=== PATIENT | female | born 1955 | race Caucasian/White ===

== ENCOUNTER → 2019-02-11 09:26 | Outpatient (CLI) | payer OTHER, SELFPAY ==
--- NOTE | 2019-02-11 09:31 | US_ITS ---
US abdomen limited HISTORY: Right upper quadrant pain abdominal bloating several months. Nausea indigestion. Heartburn diarrhea ORDERING PHYSICIAN: Shilpi Lin PATIENT AGE: 63 years Comparison: None Procedure Sagittal, transverse and decubitus imaging of the gallbladder was performed. Mw Likely FINDINGS: GALLBLADDER - No stones are evident. There is no gallbladder wall thickening. Common duct is normal in diameter.. Measures up to 5 mm at hilum of liver LIVER:. 1.2X 1.5 cm AP X 1.4 cm solid benign cystic area posterior left lobe, just anterior to the gallbladder fossa.. No significant appearing lesions . No bili ductal dilatation subtle. Suggestion of some very subtle areas of fatty change liver. . Portal vein normal caliber and normal direction flow PANCREAS: Unremarkable. Head, body and medial tail of pancreas are fairly well visualized and appear satisfactory. No pancreatic duct dilatation or mass lesion evident. No fluid collection.. RIGHT KIDNEY: .. Normal size 10 cm in length. No hydronephrosis. Borderline cortical thinning IMPRESSION.... Negative gallbladder ultrasound. No stones evident. . Common duct normal. Liver:. 1.5 cm benign-appearing hepatic cyst left lobe- just anterior to the gallbladder fossa. . Right kidney. Only note Borderline cortical thinning right kidney
== END ==
PROVIDERS: PCP Nurse Practitioner Family; Referring Provider Nurse Practitioner Family; Visit Provider Nurse Practitioner Family
DX: R10.11 Right upper quadrant pain (principal); R14.0 Abdominal distension (gaseous)
CPT/HCPCS: 76705

== ENCOUNTER → 2019-02-19 12:05 | Outpatient (CLI) | payer OTHER, SELFPAY ==
[2019-02-21 10:02] LABS: H. pylori Stool Ag, EIA Negative (Negative)
== END ==
PROVIDERS: Visit Provider Nurse Practitioner Family
DX: R14.0 Abdominal distension (gaseous) (principal); R10.11 Right upper quadrant pain
CPT/HCPCS: 87338

== ENCOUNTER → 2019-06-25 14:59 | Outpatient (POV) | payer OTHER, SELFPAY | PROVIDERS: Visit Provider Dermatology | DX: Z00.00 Encounter for general adult medical examination without abnormal findings (principal) ==

== ENCOUNTER → 2019-07-22 10:15 | Outpatient (POV) | payer OTHER, SELFPAY | PROVIDERS: PCP Internal Medicine Adolescent Medicine; Visit Provider Nurse Practitioner Family | DX: Z00.00 Encounter for general adult medical examination without abnormal findings (principal) ==

== ENCOUNTER → 2019-10-22 15:17 | Outpatient (CLI) | payer OTHER, SELFPAY ==
--- NOTE | 2019-10-22 15:22 | MM_ITS ---
PROCEDURE: MM DIG SCREENING MAMM BI W/CAD CLINICAL INDICATION: SCREENING There is a history of breast cancer patient's maternal grandmother and 3 maternal aunts and 3 maternal cousins. There has been a previous biopsy right breast for benign disease. COMPARISON: MAMMO SCREENING DIGITAL TOMOSYNTHESIS BILATERAL W CAD from 10/13/2016 MAMMO SCREENING DIGITAL TOMOSYNTHESIS BILATERAL W CAD from 10/16/2017 MAMMO DIAGNOSTIC DIGITAL TOMOSYNTHESIS RIGHT W CAD from 12/08/2017 TECHNIQUE: Standard CC and MLO images were obtained. R2 CAD reviewed. FINDINGS: Scattered fibroglandular densities are seen throughout both breasts. There is a biopsy clip upper outer quadrant right breast. There are couple of benign-appearing microcalcifications in each breast. There is no new or suspicious lesion in either breast and no suspicious microcalcifications. IMPRESSION: Moderate breast density with no suspicious lesions seen BI-RAD Category: 2 Benign Finding(s) FOLLOW-UP: 1YR 1 Year Follow-up (A letter has been sent to the patient regarding results of the study.) Dictated by: Dr. Raheem Espinoza MD 10/27/2019 14:[address] Raheem Espinoza MD in [place] 10/27/2019 14:32
== END ==
PROVIDERS: PCP Internal Medicine Adolescent Medicine; Visit Provider Nurse Practitioner Family
DX: Z12.31 Encounter for screening mammogram for malignant neoplasm of breast (principal)
CPT/HCPCS: 77067

== ENCOUNTER → 2020-07-22 11:23 | Outpatient (CLI) | payer MEDICARE, SELFPAY ==
[2020-07-22 11:50] LABS: Basophils # 0.1 K/mm3 (0-0.2); Basophils % 2.1 % (0.1-2.0); Eosinophils # 0.4 K/mm3 (0.0-0.4); Hematocrit 48.1 % (37.0-47.0); Hemoglobin 16.5 g/dL (12.2-16.2); Lymphocytes # 1.1 K/mm3 (0.7-4.5); Lymphocytes % 32.2 % (10-50); Mean Corpuscular HGB Conc 34.3 g/dL (31.8-35.4); Mean Corpuscular Hemoglobin 36.7 pg (27.0-31.2); Mean Corpuscular Volume 107.1 fl (81-99); Mean Platelet Volume 7.9 fl (7.4-10.4); Monocytes # 0.3 K/mm3 (0.1-1.0); Monocytes % 8.3 % (1.7-9.3); Neutrophils # 1.6 K/mm3 (1.8-7.8); Neutrophils % 45.5 % (37.0-80.0); Platelet Count 189 K/mm3 (142-424); Red Blood Count 4.49 M/mm3 (4.20-5.40); Red Cell Distribution Width 13.6 % (11.5-17.5); White Blood Count 3.4 K/mm3 (4.8-10.8)
[2020-07-22 12:53] LABS: Alanine Aminotransferase 121 U/L (12-78); Albumin Level 4.5 g/dl (3.5-5.0); Albumin/Globulin Ratio 1.6 (1.1-1.8); Alkaline Phosphatase 107 U/L (38-126); Anion Gap 13.3 mEq/L (5-15); Aspartate Amino Transferase 145 U/L (14-36); Blood Urea Nitrogen 13 mg/dl (7-17); Calcium 10.3 mg/dl (8.4-10.2); Carbon Dioxide 30 mmol/L (22.0-30.0); Chloride 101 mmol/L (98-107); Estimated Glomerular Filt Rate 72 ml/min (>60); GFR (African American) 87 ML/MIN (>60); Globulin 2.9 g/dL (1.3-3.2); Glucose 91 mg/dl (74-100); Potassium 4.3 mmoL/L (3.5-5.1); Sodium 140 mmol/L (136-145); Total Protein,Serum 7.4 g/dl (6.3-8.2)
== END ==
PROVIDERS: Visit Provider Internal Medicine Gastroenterology
DX: R94.5 Abnormal results of liver function studies (principal)
CPT/HCPCS: 36415; 80053; 85025

== ENCOUNTER → 2020-08-13 09:47 | Outpatient (CLI) | payer MEDICARE, OTHER, SELFPAY ==
--- NOTE | 2020-08-13 09:51 | US_ITS ---
PROCEDURE: US ABDOMEN LIMITED Referring Doctor: Yaneth Garibay Patient Age:65Y CLINICAL INDICATION: ABN LIVER FUNCTION TEST,. COMPARISON: US ABD US abdomen limited from 02/11/2019 FINDINGS: PANCREAS: Unremarkable. No obvious mass or abnormal fluid collection. No ductal dilatation LIVER: 1.8 cm 1.6 x 1.5 cm hypoechoic area at the liver just anterior to the gallbladder is again identified. It was seen on the previous February 2019, ultrasound. This this cyst appears slightly larger but with similar character and clear fluid. Only slight undulating margins in some areas.-Continue to favor a benign hepatic cyst. . No intrahepatic biliary ductal dilatation evident. There is appropriate direction of blood flow within a non dilated portal vein RIGHT KIDNEY: Borderline diffuse cortical thinning at the right kidney. It measures 11.5 cm length x4 0.6 x 5 point 2 cm ble. Normal size and normal cortical echogenicity. No hydronephrosis. GALLBLADDER: No gallstones, gallbladder wall thickening, pericholecystic fluid, or biliary dilatation. The gallbladder moderate size 8 cm length. IMPRESSION: . hepatic cyst again seen residingjust anterior to the gallbladder . This cyst measures incremental larger than on February 2019 ultrasound today measuring up to 18 mm AP maximally on today's study but continues to have clear fluid and favor benign hepatic cystic character.. However suggest follow-up within 1 year. If abnormal liver function tests should persist a progression may want to consider a follow-up CT liver, pre and postcontrast to further evaluate as well Borderline cortical thinning right kidney. Gallbladder unremarkable. Common duct normal. Dictated by: Mike Chapa MD 08/13/2020 15:24 Mike Chapa MD in [place] 08/13/2020 15:24
== END ==
PROVIDERS: PCP Internal Medicine Adolescent Medicine; Visit Provider Nurse Practitioner Family
DX: R94.5 Abnormal results of liver function studies (principal)
CPT/HCPCS: 76705

== ENCOUNTER → 2020-08-17 11:01 | Outpatient (CLI) | payer MEDICARE, SELFPAY ==
[2020-08-17 11:49] LABS: Basophils # 0.1 K/mm3 (0-0.2); Basophils % 4.6 % (0.1-2.0); Eosinophils # 0.4 K/mm3 (0.0-0.4); Eosinophils % 13.5 % (0.1-12.0); Hematocrit 51.9 % (37.0-47.0); Hemoglobin 17.2 g/dL (12.2-16.2); Lymphocytes % 34.5 % (10-50); Mean Corpuscular HGB Conc 33.2 g/dL (31.8-35.4); Mean Corpuscular Hemoglobin 35.7 pg (27.0-31.2); Mean Corpuscular Volume 107.4 fl (81-99); Mean Platelet Volume 7.8 fl (7.4-10.4); Monocytes # 0.2 K/mm3 (0.1-1.0); Neutrophils # 1.4 K/mm3 (1.8-7.8); Platelet Count 218 K/mm3 (142-424); Red Blood Count 4.83 M/mm3 (4.20-5.40); Red Cell Distribution Width 13.1 % (11.5-17.5)
[2020-08-17 12:01] LABS: INR 0.97 (0.9-1.1); Prothrombin Time 10.8 seconds (9.4-11.8)
[2020-08-17 12:16] LABS: Chloride 104 mmol/L (98-107); Potassium 3.8 mmoL/L (3.5-5.1); Sodium 144 mmol/L (136-145)
[2020-08-17 12:18] LABS: Alanine Aminotransferase 126 U/L (12-78); Aspartate Amino Transferase 163 U/L (14-36); Blood Urea Nitrogen 11 mg/dl (7-17); Estimated Glomerular Filt Rate 63 ml/min (>60); GFR (African American) 76 ML/MIN (>60)
[2020-08-17 12:19] LABS: Albumin Level 4.6 g/dl (3.5-5.0); Albumin/Globulin Ratio 1.6 (1.1-1.8); Alkaline Phosphatase 87 U/L (38-126); Anion Gap 12.8 mEq/L (5-15); Bilirubin,Total 0.7 mg/dl (0.2-1.3); Calcium 10.8 mg/dl (8.4-10.2); Carbon Dioxide 31 mmol/L (22.0-30.0); Globulin 2.8 g/dL (1.3-3.2); Glucose 95 mg/dl (74-100); Iron 185 ug/dL (37-170); Total Protein,Serum 7.4 g/dl (6.3-8.2)
[2020-08-17 12:29] LABS: Total Iron Binding Capacity 338 ug/dL (265-497)
[2020-08-17 12:54] LABS: Ferritin 205 ng/ml (11.1-264)
[2020-08-18 16:30] LABS: Ceruloplasmin 28.1 mg/dL (19.0-39.0); Immunoglobulin A, Qn 133 mg/dL (87-352); Immunoglobulin G, Qn 1053 mg/dL (586-1602)
[2020-08-19 13:18] LABS: Angiotensin Converting Enzyme 61 U/L (14-82); Deamidated Gliadin Abs, IgA 2 units (0-19); Deamidated Gliadin Abs, IgG 4 units (0-19); Immunoglobulin M, Qn 128 mg/dL (26-217); Liver-Kidney Microsomal Ab <1.0 Units (0.0-20.0); Tissue Transglutaminase IgA Ab <2 U/mL (0-3); Tissue Transglutaminase IgG Ab 2 U/mL (0-5)
[2020-08-19 13:19] LABS: Actin (Smooth Muscle) Antibody 7 Units (0-19); Endomysial IgA Antibody Negative (Negative); Mitochondrial (M2) Antibody <20.0 Units (0.0-20.0); Reticulin IgA Antibody Negative titer (Neg:<1:2.5)
[2020-08-20 07:33] LABS: ALT (SGPT) P5P 129 IU/L (0-40); AST (SGOT) P5P 157 IU/L (0-40); Alpha 2-Macroglobulins, Qn 193 mg/dL (110-276); Apolipoprotein A-1 293 mg/dL (116-209); Bilirubin, Total 0.5 mg/dL (0.0-1.2); Cholesterol, Total 293 mg/dL (100-199); GGT 347 IU/L (0-60); Glucose 89 mg/dL (65-99); Haptoglobin 149 mg/dL (37-355); Triglycerides 165 mg/dL (0-149)
[2020-08-21 21:55] LABS: Alpha-1-Antitrypsin 143 mg/dL (101-187)
[2020-08-30 16:53] LABS: Antinuclear Antibodies (ANA) NEGATIVE
== END ==
PROVIDERS: Visit Provider Nurse Practitioner Family
DX: R94.5 Abnormal results of liver function studies (principal); K76.0 Fatty (change of) liver, not elsewhere classified
CPT/HCPCS: 36415; 80053; 81256; 82103; 82104; 82164; 82390; 82728; 82784; 83516; 83540; 83550; 85025; 85610; 86038; 86255; 86256; 86376

== ENCOUNTER → 2021-02-23 15:08 | Outpatient (CLI) | payer MEDICARE, SELFPAY ==
--- NOTE | 2021-02-23 15:10 | MM_ITS ---
PROCEDURE: MM DIG SCREENING MAMM BI W/CAD Digital Breast Tomosynthesis Included CLINICAL INDICATION: SCREENING There is a history of breast cancer patient's maternal grandmother, maternal aunt and maternal cousin. There has been a previous biopsy right breast for benign disease. COMPARISON: MG MAMMO SCREENING DIGITAL TOMOSYNTHESIS BILATERAL W CAD from 10/16/2017 MG MAMMO DIAGNOSTIC DIGITAL TOMOSYNTHESIS RIGHT W CAD from 12/08/2017 MG MM DIG SCREENING MAMM BI W/CAD from 10/22/2019 TECHNIQUE: Standard CC and MLO images and 3D Tomosynthesis was obtained. R2 CAD reviewed. FINDINGS: Moderate scattered fibroglandular densities are seen throughout both breasts. There is a biopsy clip upper outer quadrant right breast. There is a stable small benign-appearing nodular density upper-outer quadrant right breast and a similar small benign-appearing nodular density central portion left breast. There is a stable collection of microcalcifications subareolar region left breast. There is no new or suspicious lesion in either breast and no suspicious microcalcifications. IMPRESSION: Moderate breast density with no suspicious lesions seen BI-RAD Category: 2 Benign Finding(s) FOLLOW-UP: 1YR 1 Year Follow-up (A letter has been sent to the patient regarding results of the study.) Dictated by: Dr. Raheem Espinoza MD 02/26/2021 11:12 Dr. Raheem Espinoza MD in [place] 02/26/2021 11:12
== END ==
PROVIDERS: PCP Internal Medicine Adolescent Medicine; Visit Provider Internal Medicine Adolescent Medicine
DX: Z12.31 Encounter for screening mammogram for malignant neoplasm of breast (principal)
CPT/HCPCS: 77063; 77067

== ENCOUNTER → 2021-06-29 14:54 | Outpatient (POV) | payer MEDICARE, SELFPAY | PROVIDERS: Visit Provider Dermatology | DX: Z00.00 Encounter for general adult medical examination without abnormal findings (principal) ==

== ENCOUNTER → 2021-10-01 11:48 | Outpatient (CLI) | payer MEDICARE, SELFPAY ==
[2021-10-01 12:36] LABS: Basophils # 0.1 K/mm3 (0-0.2); Basophils % 3.2 % (0.1-2.0); Eosinophils # 0.5 K/mm3 (0.0-0.4); Eosinophils % 16.2 % (0.1-12.0); Hematocrit 49.4 % (37.0-47.0); Hemoglobin 16.8 g/dL (12.2-16.2); Lymphocytes # 1.2 K/mm3 (0.7-4.5); Lymphocytes % 41.7 % (10-50); Mean Corpuscular Hemoglobin 37.1 pg (27.0-31.2); Mean Platelet Volume 9.2 fl (7.4-10.4); Monocytes # 0.2 K/mm3 (0.1-1.0); Monocytes % 5.5 % (1.7-9.3); Neutrophils % 33.3 % (37.0-80.0); Platelet Count 243 K/mm3 (142-424); Red Blood Count 4.54 M/mm3 (4.20-5.40); Red Cell Distribution Width 13.9 % (11.5-17.5)
[2021-10-01 13:14] LABS: Chloride 108 mmol/L (98-107); Sodium 143 mmol/L (136-145)
[2021-10-01 13:16] LABS: Alanine Aminotransferase 199 U/L (12-78); Aspartate Amino Transferase 340 U/L (14-36); Blood Urea Nitrogen 10 mg/dl (7-17); Estimated Glomerular Filt Rate 72 ml/min (>60); GFR (African American) 87 ML/MIN (>60)
[2021-10-01 13:17] LABS: Albumin Level 4.2 g/dl (3.5-5.0); Albumin/Globulin Ratio 1.6 (1.1-1.8); Alkaline Phosphatase 87 U/L (38-126); Bilirubin,Total 0.6 mg/dl (0.2-1.3); Calcium 9.7 mg/dl (8.4-10.2); Carbon Dioxide 28 mmol/L (22.0-30.0); Chol/HDL Ratio 3.1 (1-3.5); Cholesterol 234 mg/dl (140-200); Globulin 2.6 g/dL (1.3-3.2); Glucose 88 mg/dl (74-100); HDL Cholesterol 75 mg/dl (40-60); Total Protein,Serum 6.8 g/dl (6.3-8.2); Triglycerides 169 mg/dl (30-150); VLDL Cholesterol 34 mg/dL (0-40)
[2021-10-01 13:29] LABS: Direct LDL Cholesterol 147.46 mg/dL (100-129)
[2021-10-01 13:50] LABS: Thyroid Stimulating Hormone 0.56 uIU/mL (0.465-4.68)
[2021-10-01 14:20] LABS: Vitamin B12 764 pg/mL (239-931)
== END ==
PROVIDERS: Visit Provider Nurse Practitioner Family
DX: E03.9 Hypothyroidism, unspecified (principal); E78.2 Mixed hyperlipidemia; D72.819 Decreased white blood cell count, unspecified; M85.89 Other specified disorders of bone density and structure, multiple sites
CPT/HCPCS: 36415; 80053; 80061; 82306; 82607; 84443; 85025

== ENCOUNTER → 2021-10-13 09:09 | Outpatient (CLI) | payer MEDICARE, SELFPAY ==
--- NOTE | 2021-10-13 09:26 | XR_ITS ---
PROCEDURE: XR DEXA AXIAL SKELETON CLINICAL HISTORY: POST MENOPAUSAL COMPARISON: CR BONE3 BONE DENSITOMETRY(HIP:LT SPINE from 03/24/2017 FINDINGS: The right hip BMD is 0.568 with a T-score of -2.5. The left hip BMD is 0.571 with a T-score of -2.5. The lumbar spine BMD is 0.693 with a T-score of -3.2. Previously the lowest density was in the spine with a T-score -2.6 IMPRESSION: This patient is considered osteoporotic according to the World Health Organization criteria. Fracture risk is high. Treatment is advised. Based on these results a follow-up exam is recommended in 1 year. Dictated by: Tucker Smith MD 10/13/2021 16:52 Tucker Smith MD in [place] 10/13/2021 16:52
== END ==
PROVIDERS: PCP Internal Medicine Adolescent Medicine; Visit Provider Nurse Practitioner Family
DX: Z78.0 Asymptomatic menopausal state (principal); M85.80 Other specified disorders of bone density and structure, unspecified site
CPT/HCPCS: 77080

== ENCOUNTER → 2021-10-20 10:54 | Outpatient (CLI) | payer MEDICARE, OTHER, SELFPAY ==
--- NOTE | 2021-10-20 10:57 | US_ITS ---
PROCEDURE: US ABDOMEN LIMITED CLINICAL INDICATION: RUQ ABD PAIN, ABD BLOATING COMPARISON: US US ABDOMEN LIMITED from 08/13/2020 FINDINGS: PANCREAS: Unremarkable. No obvious mass or abnormal fluid collection. No ductal dilatation LIVER: 16 mm cyst is present in the left hepatic lobe not significantly changed.. There is appropriate direction of blood flow within a non dilated portal vein. RIGHT KIDNEY: Unremarkable. Normal size and echogenicity. No hydronephrosis GALLBLADDER: No gallstones, gallbladder wall thickening, or pericholecystic fluid. The common bile duct is upper normal at 6 mm. Not significantly changed IMPRESSION: Unremarkable gallbladder ultrasound. Small hepatic cyst unchanged Dictated by: Tucker Smith MD 10/20/2021 17:23 Tucker Smith MD in [place] 10/20/2021 17:23
== END ==
PROVIDERS: PCP Internal Medicine Adolescent Medicine; Visit Provider Nurse Practitioner Family
DX: R10.11 Right upper quadrant pain (principal); R14.0 Abdominal distension (gaseous)
CPT/HCPCS: 76705

== ENCOUNTER → 2021-11-29 12:33 | Outpatient (CLI) | payer MEDICARE, SELFPAY ==
[2021-11-29 13:12] LABS: Basophils # 0.2 K/mm3 (0-0.2); Basophils % 5.9 % (0.1-2.0); Eosinophils # 0.3 K/mm3 (0.0-0.4); Hematocrit 58.1 % (37.0-47.0); Lymphocytes # 1.1 K/mm3 (0.7-4.5); Lymphocytes % 37.6 % (10-50); Mean Corpuscular Hemoglobin 36.4 pg (27.0-31.2); Mean Corpuscular Volume 117.5 fl (81-99); Mean Platelet Volume 8.5 fl (7.4-10.4); Monocytes # 0.2 K/mm3 (0.1-1.0); Monocytes % 5.4 % (1.7-9.3); Neutrophils # 1.4 K/mm3 (1.8-7.8); Platelet Count 235 K/mm3 (142-424); Red Blood Count 4.95 M/mm3 (4.20-5.40); Red Cell Distribution Width 13.1 % (11.5-17.5)
[2021-11-29 14:52] LABS: Chloride 105 mmol/L (98-107); Potassium 4.4 mmoL/L (3.5-5.1); Sodium 143 mmol/L (136-145)
[2021-11-29 14:55] LABS: Alanine Aminotransferase 151 U/L (12-78); Albumin Level 4.5 g/dl (3.5-5.0); Albumin/Globulin Ratio 1.6 (1.1-1.8); Alkaline Phosphatase 107 U/L (38-126); Anion Gap 14.4 mEq/L (5-15); Aspartate Amino Transferase 238 U/L (14-36); Bilirubin,Total 0.7 mg/dl (0.2-1.3); Blood Urea Nitrogen 9 mg/dl (7-17); Carbon Dioxide 28 mmol/L (22.0-30.0); Estimated Glomerular Filt Rate 72 ml/min (>60); GFR (African American) 87 ML/MIN (>60); Globulin 2.9 g/dL (1.3-3.2); Total Protein,Serum 7.4 g/dl (6.3-8.2)
[2021-11-29 14:56] LABS: Calcium 10.1 mg/dl (8.4-10.2); Glucose 85 mg/dl (74-100)
[2021-12-01 11:38] LABS: AFP, Tumor Marker 6.1 ng/mL (0.0-8.3)
[2021-12-02 00:07] LABS: ALT (SGPT) P5P 148 IU/L (0-40); AST (SGOT) P5P 210 IU/L (0-40); Alpha 2-Macroglobulins, Qn 217 mg/dL (110-276); Apolipoprotein A-1 190 mg/dL (116-209); Bilirubin, Total 0.5 mg/dL (0.0-1.2); Cholesterol, Total 245 mg/dL (100-199); Fibrosis Score 0.36 (0.00-0.21); Fibrosis Stage F1-F2 (.); GGT 224 IU/L (0-60); Glucose 80 mg/dL (65-99); Haptoglobin 130 mg/dL (37-355); NASH Score 0.75 (0.25); Steatosis Score 0.76 (0.00-0.30); Triglycerides 182 mg/dL (0-149)
== END ==
PROVIDERS: PCP Nurse Practitioner Family; Visit Provider Nurse Practitioner Family
DX: R94.5 Abnormal results of liver function studies (principal); K76.9 Liver disease, unspecified; F10.20 Alcohol dependence, uncomplicated; R93.89 Abnormal findings on diagnostic imaging of other specified body structures
CPT/HCPCS: 36415; 80053; 82105; 85025

== ENCOUNTER → 2022-03-04 15:23 | Outpatient (CLI) | payer MEDICARE, SELFPAY ==
--- NOTE | 2022-03-04 15:27 | MM_ITS ---
PROCEDURE INFORMATION: Exam: MG Bilateral Screening 3D Mammography Exam date and time: 03/04/2022 3:33 PM Age: 66 years old Clinical indication: Screening examination. History of maternal grandmother, maternal aunts and maternal cousins with breast cancer. TECHNIQUE: Imaging protocol: Bilateral Screening tomosynthesis and 2D mammography including computer-aided detection (CAD) when performed. COMPARISON: 1. MG MM DIG SCREENING MAMM BI W/CAD 02/23/2021 3:10 PM 2. MG MM DIG SCREENING MAMM BI W/CAD 10/22/2019 3:48 PM 3. MG MAMMO DIAGNOSTIC DIGITAL TOMOSYNTHESIS RIGHT W CAD 12/08/2017 1:31 PM 4. MG MAMMO SCREENING DIGITAL TOMOSYNTHESIS BILATERAL W CAD 10/16/2017 12:54 PM FINDINGS: MAMMOGRAPHY: Breast composition: There are scattered areas of fibroglandular density. Mass: No suspicious mass. Architectural distortion: None. Calcifications: No suspicious calcifications. Asymmetric density: None. Skin thickening: None. Axillary adenopathy: None. IMPRESSION: No mammographic evidence of malignancy. Annual screening is recommended unless otherwise clinically indicated. ASSESSMENT: BI-RADS Category 1: Negative
== END ==
PROVIDERS: PCP Nurse Practitioner Family; Visit Provider Nurse Practitioner Family
DX: Z12.31 Encounter for screening mammogram for malignant neoplasm of breast (principal)
CPT/HCPCS: 77063; 77067

== ENCOUNTER → 2022-03-30 16:25 | Outpatient (CLI) | payer MEDICARE, OTHER, SELFPAY ==
--- NOTE | 2022-03-30 16:31 | XR_ITS ---
PROCEDURE INFORMATION: Exam: XR Right Foot Complete; Alignment Exam date and time: 03/30/2022 4:33 PM Age: 66 years old Clinical indication: Pain; Foot; Right; Additional info: Stress fracture evaluation TECHNIQUE: Imaging protocol: XR Right foot. Views: 3 or more views. COMPARISON: No relevant prior studies available. FINDINGS: Bones/joints: Overlying bandage obscures visualization of the osseous structures. There is no evidence of acutely displaced fractures. There is no evidence of joint dislocation. No aggressive osseous lesions. Soft tissues: Mild soft tissue swelling. IMPRESSION: No acute fractures, within the limits of this study.
== END ==
PROVIDERS: PCP Podiatrist; Visit Provider Podiatrist
DX: M79.671 Pain in right foot (principal)
CPT/HCPCS: 73630

== ENCOUNTER → 2022-04-21 11:36 | Outpatient (CLI) | payer MEDICARE, SELFPAY ==
[2022-04-21 12:18] LABS: Basophils # 0.2 K/mm3 (0-0.2); Eosinophils # 0.3 K/mm3 (0.0-0.4); Eosinophils % 10.5 % (0.1-12.0); Hematocrit 51.5 % (37.0-47.0); Hemoglobin 17.5 g/dL (12.2-16.2); Lymphocytes # 1.3 K/mm3 (0.7-4.5); Lymphocytes % 43.3 % (10-50); Mean Corpuscular Hemoglobin 35.7 pg (27.0-31.2); Mean Corpuscular Volume 105.2 fl (81-99); Mean Platelet Volume 8.8 fl (7.4-10.4); Monocytes # 0.2 K/mm3 (0.1-1.0); Monocytes % 7.7 % (1.7-9.3); Neutrophils # 1.1 K/mm3 (1.8-7.8); Neutrophils % 38.4 % (37.0-80.0); Platelet Count 211 K/mm3 (142-424); Red Blood Count 4.89 M/mm3 (4.20-5.40); Red Cell Distribution Width 13.2 % (11.5-17.5); White Blood Count 2.9 K/mm3 (4.8-10.8)
[2022-04-21 12:47] LABS: Chloride 108 mmol/L (98-107)
[2022-04-21 12:48] LABS: Potassium 3.8 mmoL/L (3.5-5.1); Sodium 143 mmol/L (136-145)
[2022-04-21 12:50] LABS: Alanine Aminotransferase 69 U/L (12-78); Alkaline Phosphatase 95 U/L (38-126); Aspartate Amino Transferase 88 U/L (14-36); Bilirubin,Total 0.6 mg/dl (0.2-1.3); Blood Urea Nitrogen 9 mg/dl (7-17); Estimated Glomerular Filt Rate 63 ml/min (>60); GFR (African American) 76 ML/MIN (>60)
[2022-04-21 12:51] LABS: Albumin Level 4.4 g/dl (3.5-5.0); Albumin/Globulin Ratio 1.6 (1.1-1.8); Anion Gap 11.8 mEq/L (5-15); Calcium 10.5 mg/dl (8.4-10.2); Carbon Dioxide 27 mmol/L (22.0-30.0); Globulin 2.8 g/dL (1.3-3.2); Glucose 100 mg/dl (74-100); Total Protein,Serum 7.2 g/dl (6.3-8.2)
== END ==
PROVIDERS: Nurse Practitioner Family; PCP Nurse Practitioner Family; Visit Provider Internal Medicine Gastroenterology
DX: F10.20 Alcohol dependence, uncomplicated (principal); R94.5 Abnormal results of liver function studies; K76.0 Fatty (change of) liver, not elsewhere classified
CPT/HCPCS: 36415; 80053; 85025

== ENCOUNTER → 2022-11-07 11:27 | Outpatient (CLI) | payer MEDICARE, OTHER, SELFPAY ==
[2022-11-07 12:17] LABS: Basophils # 0.1 K/mm3 (0-0.2); Basophils % 2.2 % (0.1-2.0); Eosinophils # 0.4 K/mm3 (0.0-0.4); Eosinophils % 11.9 % (0.1-12.0); Hematocrit 47.8 % (37.0-47.0); Lymphocytes # 1.2 K/mm3 (0.7-4.5); Lymphocytes % 35.7 % (10-50); Mean Corpuscular HGB Conc 33.5 g/dL (31.8-35.4); Mean Corpuscular Volume 104.4 fl (81-99); Mean Platelet Volume 8.4 fl (7.4-10.4); Monocytes # 0.2 K/mm3 (0.1-1.0); Monocytes % 6.4 % (1.7-9.3); Neutrophils # 1.4 K/mm3 (1.8-7.8); Neutrophils % 43.8 % (37.0-80.0); Platelet Count 200 K/mm3 (142-424); Red Blood Count 4.58 M/mm3 (4.20-5.40); Red Cell Distribution Width 12.7 % (11.5-17.5); White Blood Count 3.3 K/mm3 (4.8-10.8)
[2022-11-07 13:50] LABS: Chloride 107 mmol/L (98-107); Sodium 143 mmol/L (136-145)
[2022-11-07 13:51] LABS: Potassium 4.5 mmoL/L (3.5-5.1)
[2022-11-07 13:53] LABS: Alanine Aminotransferase 51 U/L (12-78); Albumin Level 4.3 g/dl (3.5-5.0); Albumin/Globulin Ratio 1.5 (1.1-1.8); Alkaline Phosphatase 72 U/L (38-126); Anion Gap 14.5 mEq/L (5-15); Aspartate Amino Transferase 70 U/L (14-36); Bilirubin,Total 0.9 mg/dl (0.2-1.3); Blood Urea Nitrogen 13 mg/dl (7-17); Calcium 10.5 mg/dl (8.4-10.2); Carbon Dioxide 26 mmol/L (22.0-30.0); Estimated Glomerular Filt Rate 72 ml/min (>60); GFR (African American) 87 ML/MIN (>60); Globulin 2.8 g/dL (1.3-3.2); Glucose 79 mg/dl (74-100); Total Protein,Serum 7.1 g/dl (6.3-8.2)
== END ==
PROVIDERS: PCP Nurse Practitioner Family; Visit Provider Nurse Practitioner Family
DX: K70.0 Alcoholic fatty liver (principal); K70.9 Alcoholic liver disease, unspecified; R94.5 Abnormal results of liver function studies; K58.9 Irritable bowel syndrome, unspecified; E74.31 Sucrase-isomaltase deficiency
CPT/HCPCS: 36415; 80053; 85025

== ENCOUNTER → 2023-02-20 16:52 | Outpatient (CLI) | payer MEDICARE, OTHER, SELFPAY ==
--- NOTE | 2023-02-20 17:00 | US_ITS ---
FINAL REPORT CLINICAL HISTORY: HYPOTHYROIDISM FINDINGS: Limited sonographic images of the thyroid were obtained. Calcifications are seen in the thyroid bilaterally, left greater than right. The right lobe of the thyroid measures up to 4.3 cm in length. There is a cystic nodule in the right lobe of the thyroid measuring 3 x 2 x 2 mm consistent with TI-RADS category 1. There is a 2nd cystic nodule measuring 3 x 3 x 2 mm consistent with TI-RADS category 1. There is a 3rd cystic nodule measuring 4 x 3 x 2 mm consistent with TI-RADS category 1. The left lobe of the thyroid measures up to 3.0 cm in length. No nodule is identified on the left. The isthmus measures 0.25 cm. IMPRESSION: No dominant mass. No follow-up is recommend. Reviewed, Interpreted and Dictated by Robert Escobedo III, MD Transcribed by Tracy Oneil Authenticated and [facility]
== END ==
PROVIDERS: PCP Nurse Practitioner Family; Visit Provider Nurse Practitioner Family
DX: E03.9 Hypothyroidism, unspecified (principal)
CPT/HCPCS: 76536

== ENCOUNTER → 2023-03-15 15:45 | Outpatient (CLI) | payer MEDICARE, OTHER, SELFPAY ==
--- NOTE | 2023-03-15 15:50 | MM_ITS ---
PROCEDURE INFORMATION: Exam: MG Bilateral Screening 3D Mammography Exam date and time: 03/15/2023 3:46 PM Age: 67 years old Clinical indication: Screening examination TECHNIQUE: Imaging protocol: Bilateral Screening tomosynthesis and 2D mammography including computer-aided detection (CAD) when performed. COMPARISON: 1. MG MM DIG SCREENING MAMM BI W/CAD 03/04/2022 3:33 PM 2. MG MM DIG SCREENING MAMM BI W/CAD 02/23/2021 3:10 PM FINDINGS: MAMMOGRAPHY: Breast composition: There are scattered areas of fibroglandular density. Mass: None. Architectural distortion: None. Calcifications: No suspicious calcifications. Asymmetric density: None. Skin thickening: None. Axillary adenopathy: None. IMPRESSION: No mammographic evidence of malignancy. Annual screening is recommended unless otherwise clinically indicated. ASSESSMENT: BI-RADS Category 1: Negative
== END ==
PROVIDERS: PCP Nurse Practitioner Family; Visit Provider Nurse Practitioner Family
DX: Z12.31 Encounter for screening mammogram for malignant neoplasm of breast (principal)
CPT/HCPCS: 77063; 77067

== ENCOUNTER → 2023-05-12 15:04 | Outpatient (CLI) | payer MEDICARE, OTHER, SELFPAY ==
[2023-05-12 15:19] LABS: Basophils # 0.1 K/mm3 (0-0.2); Basophils % 1.5 % (0.1-2.0); Eosinophils # 0.3 K/mm3 (0.0-0.4); Eosinophils % 7.6 % (0.1-12.0); Hematocrit 49.6 % (37.0-47.0); Hemoglobin 16.1 g/dL (12.2-16.2); Lymphocytes # 1.4 K/mm3 (0.7-4.5); Lymphocytes % 33.6 % (10-50); Mean Corpuscular HGB Conc 32.4 g/dL (31.8-35.4); Mean Corpuscular Hemoglobin 33.4 pg (27.0-31.2); Mean Corpuscular Volume 103.1 fl (81-99); Mean Platelet Volume 8.4 fl (7.4-10.4); Monocytes # 0.4 K/mm3 (0.1-1.0); Monocytes % 8.9 % (1.7-9.3); Neutrophils % 48.4 % (37.0-80.0); Platelet Count 186 K/mm3 (142-424); Red Blood Count 4.82 M/mm3 (4.20-5.40); Red Cell Distribution Width 12.9 % (11.5-17.5); White Blood Count 4.1 K/mm3 (4.8-10.8)
[2023-05-12 16:27] LABS: Alanine Aminotransferase 65 U/L (12-78); Albumin Level 4.5 g/dl (3.5-5.0); Albumin/Globulin Ratio 1.6 (1.1-1.8); Alkaline Phosphatase 95 U/L (38-126); Anion Gap 15.1 mEq/L (5-15); Aspartate Amino Transferase 73 U/L (14-36); Bilirubin,Total 0.8 mg/dl (0.2-1.3); Blood Urea Nitrogen 12 mg/dl (7-17); Calcium 10.1 mg/dl (8.4-10.2); Carbon Dioxide 28 mmol/L (22.0-30.0); Chloride 100 mmol/L (98-107); Estimated Glomerular Filt Rate 72 ml/min (>60); GFR (African American) 87 ML/MIN (>60); Globulin 2.8 g/dL (1.3-3.2); Glucose 83 mg/dl (74-100); Potassium 4.1 mmoL/L (3.5-5.1); Sodium 139 mmol/L (136-145); Total Protein,Serum 7.3 g/dl (6.3-8.2)
== END ==
PROVIDERS: PCP Nurse Practitioner Family; Visit Provider Nurse Practitioner Family
DX: R94.5 Abnormal results of liver function studies (principal); K70.0 Alcoholic fatty liver; E74.31 Sucrase-isomaltase deficiency; R14.0 Abdominal distension (gaseous); B80 Enterobiasis
CPT/HCPCS: 36415; 80053; 85025

== ENCOUNTER → 2023-07-10 13:24 | Outpatient (CLI) | payer MEDICARE, OTHER, SELFPAY | PROVIDERS: PCP Nurse Practitioner Family; Visit Provider Nurse Practitioner Family | DX: L29.0 Pruritus ani (principal) | CPT/HCPCS: 87177 ==

== ENCOUNTER 2023-10-10 08:26 | Day surgery (SDC) | payer MEDICARE, OTHER, SELFPAY ==
[2023-10-06 12:31] VITALS: BMI 24.6
[2023-10-10 08:54] VITALS: BP 140/83; PULSE 66; RESP 18; TEMP 36.2; O2SAT 98
[2023-10-10 10:04] VITALS: BP 149/86; PULSE 72; RESP 19; O2SAT 98
[2023-10-10 10:14] VITALS: BP 143/89; PULSE 73; RESP 19; O2SAT 99
[2023-10-10 10:19] VITALS: BP 144/91; PULSE 72; RESP 19; O2SAT 99
[2023-10-10 10:22] VITALS: BP 133/82; PULSE 72; RESP 16; TEMP 36.6; O2SAT 97
[2023-10-10 10:30] VITALS: BP 133/82; PULSE 72; RESP 16; TEMP 36.6; O2SAT 97
== END 2023-10-10 10:32 | disposition home or self-care (01) ==
PROVIDERS: PCP Nurse Practitioner Family; Visit Provider Ophthalmology
PROC: (CPT 66984; principal; 2023-10-10 10:30)
DX: H25.812 Combined forms of age-related cataract, left eye (principal)
CPT/HCPCS: 66984; V2632

== ENCOUNTER 2023-10-24 08:48 | Day surgery (SDC) | payer MEDICARE, OTHER, SELFPAY ==
[2023-10-20 12:36] VITALS: BMI 25.0
[2023-10-24 10:08] VITALS: BP 132/90; PULSE 79; RESP 18; TEMP 36.6; O2SAT 98
[2023-10-24 11:00] VITALS: BP 135/80; BP 148/82; PULSE 74; PULSE 76; RESP 16; O2SAT 99
[2023-10-24 11:06] VITALS: BP 137/79; PULSE 70; RESP 16; O2SAT 99
[2023-10-24 11:08] VITALS: BP 141/76; PULSE 71; RESP 16; O2SAT 99
[2023-10-24 11:10] VITALS: BP 126/90; PULSE 71; RESP 17; TEMP 36.3; O2SAT 99
[2023-10-24 11:18] VITALS: BP 126/90; PULSE 71; RESP 17; O2SAT 99
== END 2023-10-24 11:20 | disposition home or self-care (01) ==
PROVIDERS: PCP Nurse Practitioner Family; Visit Provider Ophthalmology
PROC: (CPT 66984; principal; 2023-10-24 11:00)
DX: H25.811 Combined forms of age-related cataract, right eye (principal)
CPT/HCPCS: 66984; V2632

== ENCOUNTER 2023-12-07 10:58 | Outpatient (CLI) | payer MEDICARE, OTHER, SELFPAY ==
[2023-12-07 11:56] LABS: Chloride 108 mmol/L (98-107); Sodium 143 mmol/L (136-145)
[2023-12-07 11:58] LABS: Blood Urea Nitrogen 12 mg/dl (7-17); Estimated Glomerular Filt Rate 62 ml/min (>60); GFR (African American) 75 ML/MIN (>60)
[2023-12-07 11:59] LABS: Alanine Aminotransferase 54 U/L (12-78); Albumin Level 4.2 g/dl (3.5-5.0); Albumin/Globulin Ratio 1.6 (1.1-1.8); Alkaline Phosphatase 100 U/L (38-126); Aspartate Amino Transferase 67 U/L (14-36); Bilirubin,Total 0.7 mg/dl (0.2-1.3); Calcium 9.7 mg/dl (8.4-10.2); Carbon Dioxide 28 mmol/L (22.0-30.0); Chol/HDL Ratio 3.3 (1-3.5); Cholesterol 240 mg/dl (140-200); Globulin 2.7 g/dL (1.3-3.2); Glucose 90 mg/dl (74-100); HDL Cholesterol 72 mg/dl (40-60); Total Protein,Serum 6.9 g/dl (6.3-8.2); Triglycerides 207 mg/dl (30-150); VLDL Cholesterol 41 mg/dL (0-40)
[2023-12-07 12:05] LABS: Basophils # 0.1 K/mm3 (0-0.2); Basophils % 2.4 % (0.1-2.0); Eosinophils # 0.3 K/mm3 (0.0-0.4); Eosinophils % 9.8 % (0.1-12.0); Hematocrit 49.4 % (37.0-47.0); Hemoglobin 16.9 g/dL (12.2-16.2); Lymphocytes # 1.1 K/mm3 (0.7-4.5); Lymphocytes % 36.7 % (10-50); Mean Corpuscular HGB Conc 34.2 g/dL (31.8-35.4); Mean Corpuscular Hemoglobin 36.5 pg (27.0-31.2); Mean Corpuscular Volume 106.7 fl (81-99); Mean Platelet Volume 8.2 fl (7.4-10.4); Monocytes # 0.3 K/mm3 (0.1-1.0); Monocytes % 8.3 % (1.7-9.3); Neutrophils # 1.3 K/mm3 (1.8-7.8); Neutrophils % 42.9 % (37.0-80.0); Platelet Count 164 K/mm3 (142-424); Red Blood Count 4.63 M/mm3 (4.20-5.40); Red Cell Distribution Width 12.9 % (11.5-17.5)
[2023-12-07 12:22] LABS: 25-OH Vitamin D, Total 76.7 ng/mL (30-100)
[2023-12-07 12:30] LABS: Thyroid Stimulating Hormone 0.27 uIU/mL (0.465-4.68)
[2023-12-07 12:31] LABS: Direct LDL Cholesterol 131.78 mg/dL (100-129)
== END 2023-12-07 23:59 ==
LOC: LAB 10:59
PROVIDERS: PCP Nurse Practitioner Family; Visit Provider Nurse Practitioner Family
DX: E03.9 Hypothyroidism, unspecified; E78.2 Mixed hyperlipidemia; M81.0 Age-related osteoporosis without current pathological fracture
CPT/HCPCS: 36415; 80053; 80061; 82306; 84443; 85025

== ENCOUNTER 2023-12-19 14:44 | Outpatient (CLI) | payer MEDICARE, OTHER, SELFPAY ==
[2023-12-19 15:05] LABS: Basophils # 0.1 K/mm3 (0-0.2); Basophils % 2.3 % (0.1-2.0); Eosinophils # 0.5 K/mm3 (0.0-0.4); Eosinophils % 12.7 % (0.1-12.0); Hematocrit 47.7 % (37.0-47.0); Hemoglobin 16.4 g/dL (12.2-16.2); Lymphocytes # 1.2 K/mm3 (0.7-4.5); Lymphocytes % 30.3 % (10-50); Mean Corpuscular HGB Conc 34.4 g/dL (31.8-35.4); Mean Corpuscular Hemoglobin 35.8 pg (27.0-31.2); Mean Platelet Volume 8.7 fl (7.4-10.4); Monocytes # 0.3 K/mm3 (0.1-1.0); Monocytes % 8.2 % (1.7-9.3); Neutrophils # 1.9 K/mm3 (1.8-7.8); Neutrophils % 46.5 % (37.0-80.0); Platelet Count 171 K/mm3 (142-424); Red Blood Count 4.58 M/mm3 (4.20-5.40); Red Cell Distribution Width 12.8 % (11.5-17.5); Reticulocyte % (Auto) 1.6 % (0.9-3.2); White Blood Count 4.1 K/mm3 (4.8-10.8)
[2023-12-19 16:13] LABS: Alanine Aminotransferase 48 U/L (12-78); Albumin Level 4.3 g/dl (3.5-5.0); Albumin/Globulin Ratio 1.5 (1.1-1.8); Alkaline Phosphatase 86 U/L (38-126); Anion Gap 11.8 mEq/L (5-15); Aspartate Amino Transferase 60 U/L (14-36); Bilirubin,Total 0.6 mg/dl (0.2-1.3); Blood Urea Nitrogen 8 mg/dl (7-17); Calcium 11.1 mg/dl (8.4-10.2); Carbon Dioxide 27 mmol/L (22.0-30.0); Chloride 104 mmol/L (98-107); Estimated Glomerular Filt Rate 71 ml/min (>60); GFR (African American) 86 ML/MIN (>60); Globulin 2.8 g/dL (1.3-3.2); Glucose 86 mg/dl (74-100); Potassium 3.8 mmoL/L (3.5-5.1); Sodium 139 mmol/L (136-145); Total Protein,Serum 7.1 g/dl (6.3-8.2)
[2023-12-19 17:20] LABS: Vitamin B12 291 pg/mL (239-931)
[2023-12-19 17:27] LABS: Folate > 20.00 ng/mL
[2023-12-20 08:21] LABS: Haptoglobin 143 mg/dL (37-355)
== END 2023-12-19 23:59 ==
LOC: LAB 14:45
PROVIDERS: PCP Nurse Practitioner Family; Visit Provider Internal Medicine Medical Oncology
DX: D72.819 Decreased white blood cell count, unspecified (principal)
CPT/HCPCS: 36415; 80053; 82607; 82746; 83010; 85025; 85044; 86880

== ENCOUNTER 2024-03-27 16:59 | Outpatient (CLI) | payer MEDICARE, OTHER, SELFPAY ==
--- NOTE | 2024-03-27 17:03 | MM_ITS ---
PROCEDURE INFORMATION: Exam: MG Bilateral Screening 3D Mammography Exam date and time: 03/27/2024 4:49 PM Age: 68 years old Clinical indication: Screening mammogram TECHNIQUE: Imaging protocol: Bilateral Screening tomosynthesis and 2D mammography including computer-aided detection (CAD) when performed. COMPARISON: 1. MG MM DIG SCREENING MAMM BI W/CAD 03/15/2023 3:46 PM 2. MG MM DIG SCREENING MAMM BI W/CAD 03/04/2022 3:33 PM 3. MG MM DIG SCREENING MAMM BI W/CAD 02/23/2021 3:10 PM 4. MG MM DIG SCREENING MAMM BI W/CAD 10/22/2019 3:48 PM FINDINGS: MAMMOGRAPHY: Breast composition: There are scattered areas of fibroglandular density. Mass: Stable benign-appearing subcentimeter nodules are present in the bilateral breast. No new or morphologically suspicious nodule has developed to suggest malignancy. Architectural distortion: No new or suspicious architectural distortion. Calcifications: No new or suspicious calcifications are present Asymmetric density: No new or suspicious asymmetric density is present Skin thickening: None. Axillary adenopathy: None. IMPRESSION: No mammographic evidence of malignancy. Recommend annual screening mammography unless otherwise clinically indicated. ASSESSMENT: BI-RADS category 2: Benign.
== END 2024-03-27 23:59 | disposition home or self-care (01) ==
LOC: RAD 16:59
PROVIDERS: PCP Nurse Practitioner Family; Visit Provider Nurse Practitioner Family
DX: Z12.31 Encounter for screening mammogram for malignant neoplasm of breast (principal)
CPT/HCPCS: 77063; 77067

== ENCOUNTER 2024-04-11 15:13 | Outpatient (CLI) | payer MEDICARE, OTHER, SELFPAY ==
[2024-04-11 15:45] LABS: Basophils # 0.1 K/mm3 (0-0.2); Basophils % 3.1 % (0.1-2.0); Eosinophils # 0.3 K/mm3 (0.0-0.4); Eosinophils % 6.4 % (0.1-12.0); Hematocrit 48.6 % (37.0-47.0); Hemoglobin 15.6 g/dL (12.2-16.2); Lymphocytes # 1.1 K/mm3 (0.7-4.5); Lymphocytes % 25.8 % (10-50); Mean Corpuscular HGB Conc 32.2 g/dL (31.8-35.4); Mean Corpuscular Hemoglobin 34.7 pg (27.0-31.2); Mean Corpuscular Volume 107.8 fl (81-99); Mean Platelet Volume 8.5 fl (7.4-10.4); Monocytes # 0.3 K/mm3 (0.1-1.0); Monocytes % 6.8 % (1.7-9.3); Neutrophils # 2.5 K/mm3 (1.8-7.8); Neutrophils % 57.9 % (37.0-80.0); Platelet Count 184 K/mm3 (142-424); Red Blood Count 4.51 M/mm3 (4.20-5.40); White Blood Count 4.4 K/mm3 (4.8-10.8)
[2024-04-11 17:53] LABS: Alanine Aminotransferase 45 U/L (12-78); Albumin Level 4.3 g/dl (3.5-5.0); Albumin/Globulin Ratio 1.4 (1.1-1.8); Alkaline Phosphatase 104 U/L (38-126); Anion Gap 14.1 mEq/L (5-15); Aspartate Amino Transferase 63 U/L (14-36); Bilirubin,Total 0.8 mg/dl (0.2-1.3); Blood Urea Nitrogen 14 mg/dl (7-17); Calcium 10.3 mg/dl (8.4-10.2); Carbon Dioxide 26 mmol/L (22.0-30.0); Chloride 102 mmol/L (98-107); Estimated Glomerular Filt Rate 62 ml/min (>60); GFR (African American) 75 ML/MIN (>60); Globulin 3.1 g/dL (1.3-3.2); Glucose 100 mg/dl (74-100); Potassium 4.1 mmoL/L (3.5-5.1); Sodium 138 mmol/L (136-145); Total Protein,Serum 7.4 g/dl (6.3-8.2)
== END 2024-04-11 23:59 | disposition home or self-care (01) ==
LOC: LAB 15:15
PROVIDERS: PCP Nurse Practitioner Family; Visit Provider Internal Medicine Medical Oncology
DX: D72.819 Decreased white blood cell count, unspecified (principal); Z79.899 Other long term (current) drug therapy
CPT/HCPCS: 36415; 80053; 85025

== ENCOUNTER 2025-02-03 13:51 | Outpatient (CLI) | payer MEDICARE, OTHER, SELFPAY ==
--- NOTE | 2025-02-03 13:56 | XR_ITS ---
FINAL REPORT TECHNIQUE: Bone densitometry calculations of the lumbar spine and left hip were obtained. CLINICAL HISTORY: SCREENING COMPARISON: 10/13/2021 FINDINGS: Using L1-4, the bone mineral density of the spine is 0.653 g/cm2, corresponding to T-score of -3.6, with a Z-score of -1.5. Using the left hip, the bone mineral density of the femoral neck is 0.673 g/cm2, corresponding to a T-score of -2.2, with a Z-score of -0.7. Using the right hip, the bone mineral density of the femoral neck is 0.601 g/cm?, corresponding to a T-score of -2.2, and a Z-score of -0.5. NOTE: T-score: Standard deviation compared with peak bone mass of young adult mean. *Following the recommendations of the International Society of Bone Densitometry, classification of hip BMD is based on the lower of two T-scores; total hip or femoral neck. IMPRESSION: Osteoporosis: Lowest T-score is at or below -2.5. This patient's T-score meets the World Health Organization criteria for osteoporosis. Reviewed, Interpreted and Dictated by Fiordaliza Vieira MD Transcribed by Jessi Howard Authenticated and [facility]
== END 2025-02-03 23:59 | disposition home or self-care (01) ==
LOC: RAD 13:52
PROVIDERS: PCP Nurse Practitioner Family; Visit Provider Internal Medicine Adolescent Medicine
DX: M81.0 Age-related osteoporosis without current pathological fracture (principal); M85.88 Other specified disorders of bone density and structure, other site
CPT/HCPCS: 77080

== ENCOUNTER 2025-02-18 11:35 | Outpatient (CLI) | payer MEDICARE, OTHER, SELFPAY ==
[2025-02-18 13:23] LABS: Basophils # 0.1 K/mm3 (0-0.2); Basophils % 3.2 % (0.1-2.0); Eosinophils # 0.3 K/mm3 (0.0-0.4); Hematocrit 48.2 % (37.0-47.0); Hemoglobin 16.5 g/dL (12.2-16.2); Lymphocytes # 1.2 K/mm3 (0.7-4.5); Lymphocytes % 42.5 % (10-50); Mean Corpuscular HGB Conc 34.2 g/dL (31.8-35.4); Mean Corpuscular Hemoglobin 34.7 pg (27.0-31.2); Mean Corpuscular Volume 101.3 fl (81-99); Mean Platelet Volume 10.5 fl (7.4-10.4); Monocytes # 0.3 K/mm3 (0.1-1.0); Monocytes % 9.6 % (1.7-9.3); Neutrophils % 34.3 % (37.0-80.0); Platelet Count 195 K/mm3 (142-424); Red Blood Count 4.76 M/mm3 (4.20-5.40); Red Cell Distribution Width 12.1 % (11.5-17.5); White Blood Count 2.8 K/mm3 (4.8-10.8)
[2025-02-18 13:26] LABS: Alanine Aminotransferase 66 U/L (12-78); Albumin Level 4.1 g/dl (3.5-5.0); Albumin/Globulin Ratio 1.2 (1.1-1.8); Alkaline Phosphatase 92 U/L (38-126); Anion Gap 15.2 mEq/L (5-15); Aspartate Amino Transferase 87 U/L (14-36); Bilirubin,Total 0.8 mg/dl (0.2-1.3); Blood Urea Nitrogen 12 mg/dl (7-17); Calcium 9.6 mg/dl (8.4-10.2); Carbon Dioxide 25 mmol/L (22.0-30.0); Chloride 106 mmol/L (98-107); Chol/HDL Ratio 2.5 (1-3.5); Cholesterol 256 mg/dl (140-200); Estimated Glomerular Filt Rate 55 ml/min (>60); GFR (African American) 67 ML/MIN (>60); Globulin 3.3 g/dL (1.3-3.2); Glucose 84 mg/dl (74-100); HDL Cholesterol 104 mg/dl (40-60); Potassium 4.2 mmoL/L (3.5-5.1); Sodium 142 mmol/L (136-145); Total Protein,Serum 7.4 g/dl (6.3-8.2); Triglycerides 169 mg/dl (30-150); VLDL Cholesterol 34 mg/dL (0-40)
[2025-02-18 13:37] LABS: Direct LDL Cholesterol 134.04 mg/dL (100-129)
[2025-02-18 13:43] LABS: 25-OH Vitamin D, Total 77.5 ng/mL (30-100)
[2025-02-18 13:44] LABS: Free T4 (Free Thyroxine) 1.35 ng/dl (0.78-2.19)
== END 2025-02-18 23:59 | disposition home or self-care (01) ==
LOC: LAB 11:36
PROVIDERS: PCP Nurse Practitioner Family; Visit Provider Nurse Practitioner Family
DX: E03.9 Hypothyroidism, unspecified (principal); M81.0 Age-related osteoporosis without current pathological fracture; E78.2 Mixed hyperlipidemia; D72.819 Decreased white blood cell count, unspecified
CPT/HCPCS: 36415; 80053; 80061; 82306; 84439; 84443; 85025

== ENCOUNTER 2025-03-31 16:39 | Outpatient (CLI) | payer MEDICARE, OTHER, SELFPAY ==
--- NOTE | 2025-03-31 16:50 | MM_ITS ---
PROCEDURE INFORMATION: Exam: MG Bilateral Screening 3D Mammography Exam date and time: 03/31/2025 4:51 PM Age: 69 years old Clinical indication: Screening examination TECHNIQUE: Imaging protocol: Bilateral Screening tomosynthesis and 2D mammography including computer-aided detection (CAD) when performed. COMPARISON: 1. MG MM DIG SCREENING MAMM BI W/CAD 03/27/2024 4:49 PM 2. MG MM DIG SCREENING MAMM BI W/CAD 03/15/2023 3:46 PM FINDINGS: MAMMOGRAPHY: Breast composition: There are scattered areas of fibroglandular density. Mass: None. Architectural distortion: None. Calcifications: No suspicious calcifications. Asymmetric density: None. Skin thickening: None. Axillary adenopathy: None. IMPRESSION: No mammographic evidence of malignancy. Annual screening is recommended unless otherwise clinically indicated. ASSESSMENT: BI-RADS Category 1: Negative.
== END 2025-03-31 23:59 | disposition home or self-care (01) ==
LOC: RAD 16:41
PROVIDERS: PCP Nurse Practitioner Family; Visit Provider Nurse Practitioner Family
DX: Z12.31 Encounter for screening mammogram for malignant neoplasm of breast (principal); R92.323 Mammographic fibroglandular density, bilateral breasts
CPT/HCPCS: 77063; 77067